=== PATIENT | male | born 1970 | race African-American/Black ===

== ENCOUNTER 2016-11-01 09:25 | Emergency (ER) | payer SELFPAY ==
[~2016-11-01] VITALS: Ht 175.3 cm; Wt 93.0 kg
[~2016-11-01 09:25] MED LIST: DEXAMETHASONE 4 MG TABLET PO ONE
[2016-11-01] MEDS ORDERED: ACETAMINOPHEN 500 MG TABLET PO ONE (10:15)
[2016-11-01 10:30] LABS: BASO % 0 % (0-3); EOS % 0 % (0-3); HEMATOCRIT 43.3 % (39.0-53.0); HEMOGLOBIN 14.1 g/dL (13.0-17.5); LYMPH % 5 % (24-48); MEAN CORPUSCULAR HEMOGLOBIN 29 pg (25-35); MEAN CORPUSCULAR HGB CONC 33 g/dL (31-37); MEAN CORPUSCULAR VOLUME 88 fL (79-100); MONO % 10 % (0-9); NEUT % 85 % (31-73); PLATELET COUNT 248 x10^3/uL (140-400); RED CELL DISTRIBUTION WIDTH 14.9 % (11.5-14.5); WHITE BLOOD COUNT 18.3 x10^3/uL (4.0-11.0)
[2016-11-01 10:31] LABS: LYMPH # 0.9 x10^3/uL (1.0-4.8)
--- NOTE | 2016-11-01 10:38 | ED.ADGEN ---
Past Medical History Past Medical History: High Cholesterol, Heart Disease, Hypertension, Other Additional Past Medical Histor: 'pre diabetes' Past Surgical History: Other Additional Past Surgical Histo: left leg vee Alcohol Use: Occasionally Drug Use: None Adult General Chief Complaint Chief Complaint: HEADACHE HPI HPI Patient is a 46 year old man, history of hypertension, "prediabetes", high cholesterol, CAD, who presents to the emergency department with multiple complaints, including a headache, lightheadedness over the past several days. Denies any actual syncope, states that it feels both like the room is spinning around him and as though he is going to pass out, denies any focal weakness numbness or tingling, any vision changes, states he does have some nasal congestion, and sore throat, denies any postnasal drip. Denies similar symptoms previously, denies any recent sick contacts or exposures. Some cough, is nonproductive. No recent travel or surgery, states he has been compliant with his medications. He states he's had headaches previously, and his blood pressure was high, but currently his blood pressure is 150/80 he states he has been compliant with his medications. He states he also been experiencing fevers and chills at home that he been subjective. This is all occurred over the past 2 days. No GI or symptoms. No injuries. Review of Systems Review of Systems Constitutional: Subjective fevers and chills. [] Eyes: Denies change in visual acuity. [] HENT: Some nasal congestion, sore throat. [] Respiratory: Denies shortness of breath, complaining of cough. Cardiovascular: Denies chest pain or edema. [] GI: Denies abdominal pain, nausea, vomiting, bloody stools or diarrhea. [] : Denies dysuria. [] Musculoskeletal: Denies back pain or joint pain. [] Integument: Denies rash. [] Neurologic: Frontal headache, lightheadedness, no weakness, numbness or tingling changes. [] Endocrine: Denies polyuria or polydipsia. [] Lymphatic: Denies swollen glands. [] Psychiatric: Denies depression or anxiety. [] Current Medications Current Medications Current Medications Medications (Trade) Dose Ordered Sig/Reinier Start Time Stop Time Status Last Admin Dose Admin Acetaminophen (Tylenol) 1,000 mg 1X ONCE 11/01/16 10:15 11/01/16 10:16 DC 11/01/16 10:23 1,000 MG Dexamethasone (Decadron) 4 mg ONCE ONCE 11/01/16 08:00 11/01/16 13:42 DC Dexamethasone Sodium Phosphate (Decadron) 4 mg 1X ONCE 11/01/16 14:00 11/01/16 14:01 DC 11/01/16 13:40 4 MG Penicillin G Benzathine (Bicillin L-A) 1,200,000 unit 1X ONCE 11/01/16 13:30 11/01/16 13:42 DC 11/01/16 13:41 1,200,000 UNIT Allergies Allergies Allergies Coded Allergies Type Severity Reaction Last Updated Verified No Known Drug Allergies 12/06/15 No Physical Exam Physical Exam Constitutional: Well developed, well nourished, no acute distress, non-toxic appearance. [] HENT: Normocephalic, atraumatic, bilateral external ears normal, oropharynx moist, mild postnasal drip noted, patient with turbinate swelling bilaterally, no oral exudates, external nose normal. [] No temporal tenderness, no mastoid tenderness, TMs are clear bilaterally. Eyes: PERRLA, EOMI, conjunctiva normal, no discharge. [] Neck: Normal range of motion, no tenderness, supple, no stridor. No nuchal rigidity, negative jolt accentuation test. [] Cardiovascular:Heart rate regular rhythm, no murmur, S1, S2, rubs or gallops. [] Lungs & Thorax: Bilateral breath sounds clear to auscultation , no wheezing, rhonchi, rales. No chest wall crepitus or tenderness. [] Abdomen: Bowel sounds normal, soft, no rebound, rigidity, no guarding, no tenderness, no masses, no pulsatile masses. [] Skin: Warm, dry, no erythema, no rash. [] Back: No tenderness, no CVA tenderness. [] Extremities: No tenderness, no cyanosis, no clubbing, ROM intact, no edema. [] Neurologic: Alert and oriented X 3, normal motor function, normal sensory function, no focal deficits noted. [] Psychologic: Affect normal, judgement normal, mood normal. [] Current Patient Data Vital Signs Vital Signs Date Time Temp Pulse Resp B/P Pulse Ox O2 Delivery O2 Flow Rate FiO2 11/01/16 13:44 62 16 148/85 96 Room Air 4/29/17 09:52 99.4 99.4 Lab Values Laboratory Tests Test 11/01/16 09:53 11/01/16 11:56 White Blood Count 18.3x10^3/uL (4.0-11.0) H Red Blood Count 4.90x10^6/uL (4.30-5.70) Hemoglobin 14.1g/dL (13.0-17.5) Hematocrit 43.3% (39.0-53.0) Mean Corpuscular Volume 88fL (79-100) Mean Corpuscular Hemoglobin 29pg (25-35) Mean Corpuscular Hemoglobin Concent 33g/dL (31-37) Red Cell Distribution Width 14.9% (11.5-14.5) H Platelet Count 248x10^3/uL (140-400) Neutrophils (%) (Auto) 85% (31-73) H Lymphocytes (%) (Auto) 5% (24-48) L Monocytes (%) (Auto) 10% (0-9) H Eosinophils (%) (Auto) 0% (0-3) Basophils (%) (Auto) 0% (0-3) Neutrophils # (Auto) 15.5x10^3uL (1.8-7.7) H Lymphocytes # (Auto) 0.9x10^3/uL (1.0-4.8) L Monocytes # (Auto) 1.8x10^3/uL (0.0-1.1) H Eosinophils # (Auto) 0.0x10^3/uL (0.0-0.7) Basophils # (Auto) 0.0x10^3/uL (0.0-0.2) Segmented Neutrophils % 62% (35-66) Band Neutrophils % 27% (0-9) H Lymphocytes % 6% (24-48) L Monocytes % 4% (0-10) Eosinophils % 1% (0-5) Platelet Estimate Adequate (ADEQUATE) Sodium Level 137mmol/L (136-145) Potassium Level 3.9mmol/L (3.5-5.1) Chloride Level 100mmol/L (98-107) Carbon Dioxide Level 28mmol/L (21-32) Anion Gap 9 (6-14) Blood Urea Nitrogen 14mg/dL (8-26) Creatinine 1.2mg/dL (0.7-1.3) Estimated GFR (Cockcroft-Gault) 78.9 BUN/Creatinine Ratio 12 (6-20) Glucose Level 122mg/dL (70-99) H Calcium Level 9.5mg/dL (8.5-10.1) Magnesium Level 2.1mg/dL (1.8-2.4) Total Bilirubin 0.4mg/dL (0.2-1.0) Aspartate Amino Transferase (AST) 24U/L (15-37) Alanine Aminotransferase (ALT) 21U/L (16-63) Alkaline Phosphatase 73U/L (46-116) Troponin I Quantitative < 0.017ng/mL (0.000-0.055) RA-Nsx-C-Type Natriuretic Peptide 27pg/mL (0-124) Total Protein 8.7g/dL (6.4-8.2) H Albumin 3.6g/dL (3.4-5.0) Albumin/Globulin Ratio 0.7 (1.0-1.7) L Urine Collection Type Void Urine Color Mary Urine Clarity Clear Urine pH 6.0 Urine Specific [place] >=1.030 Urine Protein 100mg/dL (NEG-TRACE) Urine Glucose (UA) Negativemg/dL (NEG) Urine Ketones (Stick) 15mg/dL (NEG) Urine Blood Negative (NEG) Urine Nitrite Negative (NEG) Urine Bilirubin Moderate (NEG) Urine Urobilinogen Dipstick 1.0mg/dL (0.2 mg/dL) Urine Leukocyte Esterase Small (NEG) Urine RBC 0/HPF (0-2) Urine WBC 5-10/HPF (0-4) Urine Squamous Epithelial Cells Many/LPF Urine Bacteria Few/HPF (0-FEW) Urine Opiates Screen Neg (NEG) Urine Methadone Screen Neg (NEG) Urine Barbiturates Neg (NEG) Urine Phencyclidine Screen Neg (NEG) Urine Amphetamine/Methamphetamine Neg (NEG) Urine Benzodiazepines Screen Neg (NEG) Urine Cocaine Screen Neg (NEG) Urine Cannabinoids Screen Neg (NEG) Urine Ethyl Alcohol Neg (NEG) Laboratory Tests 11/01/16 09:53 Laboratory Tests 11/01/16 09:53 EKG EKG ECG: An 27: Sinus rhythm, heart rate 68 bpm, upright axis, QTC of 398, MS 140, QRS of 86, T-wave inversions noted in lead 3, no ST elevations or depressions, abnormal ECG, does not meet STEMI criteria. As interpreted by me. Radiology/Procedures Radiology/Procedures [] [address] [address] IMAGING REPORT Signed PATIENT: DARIA DUNCAN ACCOUNT: [id number] : 1970 LOCATION: ER AGE: 46 SEX: M EXAM STATUS: REG ER ORD. PHYSICIAN: MATT ESPINOSA DO REASON: CH PROCEDURE: CT HEAD WO CONTRAST Clinical indications: Headache and dizziness. Technique: Noncontrast axial cross sectional scanning of the head was performed. RS Compliance Statement: One or more of the following individualized dose reduction techniques were utilized for this examination: 1. Automated exposure control 2. Adjustment of the mA and/or kV according to patient size 3. Use of iterative reconstruction technique Comparison: April 23, 2010. Findings: No acute intracranial hemorrhage or midline shift or mass-effect or hydrocephalus or extra-axial fluid collection is seen. No focal hypodense area or sulci effacement is seen to indicate an acute infarct or edema radiographically. No skull fracture or pneumocephalus is seen. No opacification of the mastoid sinuses or the paranasal sinuses is seen. The maxillary sinuses are not completely seen in this study. Impression: No acute intracranial abnormality is seen. DICTATED and SIGNED BY: ALISA MCPHERSON MD DATE: 11/01/16 1242 CC: VINNIE [employer]; MATT ESPINOSA DO ~ Impressions: [address] [address] IMAGING REPORT Signed PATIENT: DARIA DUNCAN ACCOUNT: [id number] : 1970 LOCATION: ER AGE: 46 SEX: M EXAM STATUS: PRE ER ORD. PHYSICIAN: MATT ESPINOSA DO REASON: CH/Lightheadness/cough PROCEDURE: CHEST PA & LATERAL 2 view CXR: Clinical indications: Lightheadedness. Headache for 3 days. Comparison: None available. Findings: No acute lung infiltrate or pleural effusion or pulmonary edema or lung mass or pneumothorax is seen. The heart size, pulmonary vasculature, mediastinum and both rah are unremarkable. The osseous structures appear intact. Impression: No acute radiographic abnormality is seen. DICTATED and SIGNED BY: ALISA MCPHERSON MD DATE: 11/01/16 1033 CC: [employer] CONSULTANT; MATT ESPINOSA DO ~ Course & Med Decision Making Course & Med Decision Making Pertinent Labs and Imaging studies reviewed. (See chart for details) Evaluated patient, patient's neurologic examination is non-concerning, however on reevaluation after receiving medication he still complained of headache, CT of the head was ordered at that time to rule out any occult concerning causes. Head CT was unremarkable. Patient states he is feeling better receiving IV fluids, Tylenol, in the ED, strep swab was positive, patient noted to have a leukocytosis of 18 with a bandemia and a left shift, no other concerning findings were identified, no other source for infection. Patient's examination is not consistent with meningitis, there is no rigidity, no neck stiffness or soreness, and negative jolt accentuation test. Patient afebrile emergency department, received Decadron, and IM penicillin after discussion, has tolerated penicillin without issue previously. Discussed use of supportive measures, importance of establishing a primary care provider, patient was follow -up instructions, concerning symptoms that should prompt return to the ED. Patient discharged home in stable condition with his family with plan as above. Dragon Disclaimer Dragon Disclaimer This electronic medical record was generated, in whole or in part, using a voice recognition dictation system. Departure Impression: Primary Impression: Strep pharyngitis Additional Impressions: Headache Body aches Disposition: HOME, SELF-CARE Condition: IMPROVED Scripts Ondansetron Hcl (Zofran)4 Mg Tablet1 Tab PO PRN Q6-8HRS #10 TAB Prov:MATT ESPINOSA DO 11/01/16 Problem Qualifiers MATT ESPINOSA DO Nov 01, 2016 10:38
--- NOTE | 2016-11-01 10:50 | EKG ---
[facility] [address] [place] [address] Test Date: 2016-11-01 Test Time: 10:27:51 Pat Name: DARIA DUNCAN Department: Room: Gender: M Apprentice Carpenter: : 1970 Requested By: MATT ESPINOSA Order Number: [id number] Reading MD: Saul Lee Measurements Intervals [place] Rate: 68 P: 52 [place]: 140 QRS: 42 QRSD: 86 T: 15 QT: 374 QTc: 398 Interpretive Statements SINUS RHYTHM Electronically Signed On 11-05-2016 9:48:15 CDT by Saul Lee
[2016-11-01 11:00] LABS: ALBUMIN 3.6 g/dL (3.4-5.0); ALBUMIN/GLOBULIN RATIO 0.7 (1.0-1.7); CALCIUM 9.5 mg/dL (8.5-10.1); CREATININE 1.2 mg/dL (0.7-1.3); GFR 78.9; TOTAL BILIRUBIN 0.4 mg/dL (0.2-1.0); TOTAL PROTEIN 8.7 g/dL (6.4-8.2)
[2016-11-01 11:01] LABS: MAGNESIUM 2.1 mg/dL (1.8-2.4); POTASSIUM 3.9 mmol/L (3.5-5.1)
[2016-11-01 12:13] LABS: BILIRUBIN,URINE MODERATE (NEG); GLUCOSE,URINE NEGATIVE (NEG); NITRITE,URINE NEGATIVE (NEG); PROTEIN,URINE 100 mg/dL (NEG-TRACE)
[2016-11-01 12:32] LABS: BARBITURATES NEG (NEG); BENZODIAZEPINES NEG (NEG); CANNABINOIDS NEG (NEG); COCAINE NEG (NEG); METHADONE NEG (NEG); OPIATES NEG (NEG); PHENCYCLIDINE NEG (NEG)
[2016-11-01 12:33] LABS: BACTERIA,URINE FEW /HPF (0-FEW); RBC,URINE 0 /HPF (0-2); SQUAMOUS EPITHELIAL CELL,UR MANY /LPF
[2016-11-01 12:36] LABS: % EOS 1 % (0-5); PLT ESTIMATE ADEQUATE (ADEQUATE)
--- NOTE | 2016-11-01 12:47 | RAD ---
Clinical indications: Headache and dizziness. Technique: Noncontrast axial cross sectional scanning of the head was performed. PQRS Compliance Statement: One or more of the following individualized dose reduction techniques were utilized for this examination: 1. Automated exposure control 2. Adjustment of the mA and/or kV according to patient size 3. Use of iterative reconstruction technique Comparison: April 23, 2010. Findings: No acute intracranial hemorrhage or midline shift or mass-effect or hydrocephalus or extra-axial fluid collection is seen. No focal hypodense area or sulci effacement is seen to indicate an acute infarct or edema radiographically. No skull fracture or pneumocephalus is seen. No opacification of the mastoid sinuses or the paranasal sinuses is seen. The maxillary sinuses are not completely seen in this study. Impression: No acute intracranial abnormality is seen.
[2016-11-01] MEDS ORDERED: PENICILLIN G BENZATHINE LA 1,200,000 UNIT/2 ML DISP.SYRIN. IM ONE (13:30)
[2016-11-01] MEDS ORDERED: DEXAMETHASONE SOD PHOS 4 MG/ML VIAL ONE (13:38)
[2016-11-01] MEDS ORDERED: ONDA4TAB7 PO (13:39)
[2016-11-01 13:44] VITALS: BP 148/85
[2016-11-01] MEDS ORDERED: DEXAMETHASONE SOD PHOS 4 MG/ML VIAL PO ONE (14:00)
[2016-11-02 07:48] LABS: NEGATIVE OBC STREP NEG; POSITIVE OBC STREP POS
== END 2016-11-01 13:56 | disposition home or self-care (01) ==
LOC: ER 09:25
DX: R51 Headache (principal); J02.0 Streptococcal pharyngitis; M79.1 Myalgia; E78.00 Pure hypercholesterolemia, unspecified; I10 Essential (primary) hypertension
CPT/HCPCS: 36415; 70450; 71020; 80053; 80305; 81001; 83735; 83880; 84484; 85007; 85027; 87086; 87880; 93005; 96372; 99285; J0561; J1100; G0481

== ENCOUNTER 2017-02-17 23:42 | Emergency (ER) | payer SELFPAY ==
[~2017-02-17] VITALS: Ht 170.2 cm; Wt 89.8 kg
[~2017-02-17 23:42] MED LIST changes: -DEXAMETHASONE 4 MG TABLET PO ONE; +ONDA4TAB7 PO
[2017-02-18] VITALS: BP 142/69
[2017-02-18] MEDS ORDERED: CYCL10TA2 PO (00:10)
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
[2017-02-18] MEDS ORDERED: IBUPROFEN 800 MG TABLET. PO ONE (00:30)
== END 2017-02-18 00:35 | disposition home or self-care (01) ==
LOC: ER 23:42
DX: M25.551 Pain in right hip (principal); M54.5 Low back pain; E78.00 Pure hypercholesterolemia, unspecified; I11.9 Hypertensive heart disease without heart failure
CPT/HCPCS: 99283

== ENCOUNTER 2019-05-19 12:10 | Emergency (ER) | payer MEDICARE, OTHER ==
[~2019-05-19] VITALS: Ht 170.2 cm; Wt 89.8 kg
[~2019-05-19 12:10] MED LIST changes: +CYCL10TA2 PO
[2019-05-19] MEDS ORDERED: NITROGLYCERIN SUBLINGUAL 0.4 MG BOTTLE OF 25. SL STA (12:38)
[2019-05-19] MEDS ORDERED: ASPIRIN CHEWABLE 81 MG TABLET. PO ONE (12:45)
--- NOTE | 2019-05-19 12:45 | PHYS DOC ---
Past Medical History Past Medical History: High Cholesterol, Heart Disease, Hypertension, Other Additional Past Medical Histor: 'pre diabetes' Past Surgical History: Other Additional Past Surgical Histo: left leg vee Alcohol Use: Occasionally Drug Use: None Adult General Chief Complaint Chief Complaint: chest pain HPI HPI Patient is a 48 year old male who presents with complaining of chest pain. Patient complaining of intermittent episodes of substernal sharp pain for the last 5 days for several hours without radiation of the pain, shortness of breath, nausea and vomiting, dizziness, palpitation. Patient states the pain does not get worse with position and improves with laying on his right side. Patient states the pain lasts for several hours and rated his pain 10 over 10 . Patient rated his pain 10 over 10 at arrival to ER and denies taking pain medication at home. Patient states he was seen by cardiology and had cardiac catheterization 2 or 3 years ago [facility] related to the same pain and was started on blood pressure and heart medication but doesn't know the name of his medication. Patient states he did not take his medication for the last 10 days because he ran out of his medication. Review of Systems Review of Systems Constitutional: Denies fever or chills [] Eyes: Denies change in visual acuity, redness, or eye pain [] HENT: Denies nasal congestion or sore throat [] Respiratory: Denies cough or shortness of breath [] Cardiovascular: No additional information not addressed in HPI [] GI: Denies abdominal pain, nausea, vomiting, bloody stools or diarrhea [] : Denies dysuria or hematuria [] Musculoskeletal: Denies back pain or joint pain [] Integument: Denies rash or skin lesions [] Neurologic: Denies headache, focal weakness or sensory changes [] Endocrine: Denies polyuria or polydipsia [] All other systems were reviewed and found to be within normal limits, except as documented in this note. Current Medications Current Medications Current Medications Medications (Trade) Dose Ordered Sig/Reinier Start Time Stop Time Status Last Admin Dose Admin Aspirin (Children'S Aspirin) 324 mg 1X ONCE 05/19/19 12:45 05/19/19 12:46 DC 05/19/19 13:13 324 MG Nitroglycerin (Nitrostat) 0.4 mg 1X STAT 05/19/19 12:38 05/19/19 12:41 DC 05/19/19 13:14 0.4 MG Allergies Allergies Allergies Coded Allergies Type Severity Reaction Last Updated Verified No Known Drug Allergies 12/06/15 No Physical Exam Physical Exam Constitutional: Well developed, well nourished, mild distress, non-toxic appearance. [] HENT: Normocephalic, atraumatic, bilateral external ears normal, oropharynx moist, no oral exudates, nose normal. [] Eyes: PERRLA, EOMI, conjunctiva normal, no discharge. [] Neck: Normal range of motion, no tenderness, supple, no stridor. [] Cardiovascular:Heart rate regular rhythm, no murmur [] Lungs & Thorax: Bilateral breath sounds clear to auscultation [] Abdomen: Bowel sounds normal, soft, no tenderness, no masses, no pulsatile masses. [] Skin: Warm, dry, no erythema, no rash. [] Back: No tenderness, no CVA tenderness. [] Extremities: No tenderness, no cyanosis, no clubbing, ROM intact, no edema. [] Neurologic: Alert and oriented X 3, normal motor function, normal sensory function, no focal deficits noted. [] Psychologic: Affect anxious, judgement normal, mood normal. [] Current Patient Data Vital Signs Vital Signs Date Time Temp Pulse Resp B/P (MAP) Pulse Ox O2 Delivery O2 Flow Rate FiO2 05/19/19 14:30 70 20 118/73 (88) 95 Room Air 05/19/19 12:29 98.6 98.6 Lab Values Laboratory Tests Test 05/19/19 13:00 05/19/19 13:05 White Blood Count 6.0 x10^3/uL (4.0-11.0) Red Blood Count 4.74 x10^6/uL (4.30-5.70) Hemoglobin 13.4 g/dL (13.0-17.5) Hematocrit 40.4 % (39.0-53.0) Mean Corpuscular Volume 85 fL (79-100) Mean Corpuscular Hemoglobin 28 pg (25-35) Mean Corpuscular Hemoglobin Concent 33 g/dL (31-37) Red Cell Distribution Width 14.3 % (11.5-14.5) Platelet Count 273 x10^3/uL (140-400) Neutrophils (%) (Auto) 58 % (31-73) Lymphocytes (%) (Auto) 30 % (24-48) Monocytes (%) (Auto) 8 % (0-9) Eosinophils (%) (Auto) 3 % (0-3) Basophils (%) (Auto) 1 % (0-3) Neutrophils # (Auto) 3.4 x10^3/uL (1.8-7.7) Lymphocytes # (Auto) 1.8 x10^3/uL (1.0-4.8) Monocytes # (Auto) 0.4 x10^3/uL (0.0-1.1) Eosinophils # (Auto) 0.2 x10^3/uL (0.0-0.7) Basophils # (Auto) 0.1 x10^3/uL (0.0-0.2) Prothrombin Time 12.6 SEC (11.7-14.0) Prothrombin Time INR 1.0 (0.8-1.1) Sodium Level 142 mmol/L (136-145) Potassium Level 4.3 mmol/L (3.5-5.1) Chloride Level 105 mmol/L (98-107) Carbon Dioxide Level 26 mmol/L (21-32) Anion Gap 11 (6-14) Blood Urea Nitrogen 14 mg/dL (8-26) Creatinine 0.9 mg/dL (0.7-1.3) Estimated GFR (Cockcroft-Gault) 109.0 BUN/Creatinine Ratio 16 (6-20) Glucose Level 96 mg/dL (70-99) Calcium Level 8.7 mg/dL (8.5-10.1) Magnesium Level 1.8 mg/dL (1.8-2.4) Total Bilirubin 0.2 mg/dL (0.2-1.0) Aspartate Amino Transferase (AST) 15 U/L (15-37) Alanine Aminotransferase (ALT) 21 U/L (16-63) Alkaline Phosphatase 62 U/L (46-116) Creatine Kinase 125 U/L (39-308) Troponin I Quantitative < 0.017 ng/mL (0.000-0.055) QV-Xet-Y-Type Natriuretic Peptide 147 pg/mL (0-124) H Total Protein 7.5 g/dL (6.4-8.2) Albumin 3.7 g/dL (3.4-5.0) Albumin/Globulin Ratio 1.0 (1.0-1.7) Lipase 55 U/L (73-393) L Urine Opiates Screen Neg (NEG) Urine Methadone Screen Neg (NEG) Urine Barbiturates Neg (NEG) Urine Phencyclidine Screen Neg (NEG) Urine Amphetamine/Methamphetamine Neg (NEG) Urine Benzodiazepines Screen Neg (NEG) Urine Cocaine Screen Neg (NEG) Urine Cannabinoids Screen Neg (NEG) Urine Ethyl Alcohol Pos (NEG) Laboratory Tests 05/19/19 13:00 Laboratory Tests 05/19/19 13:00 EKG EKG EKG interpreted by me. EKG at 1220 showed normal sinus rhythm with rate of 63 with PVCs, left atrial abnormalities, no acute ST and T-wave elevation. Radiology/Procedures Radiology/Procedures [facility] [address] [place], [place] [id number] IMAGING REPORT Signed PATIENT: DARIA DUNCAN ACCOUNT: [id number] : 1970 LOCATION: ER AGE: 48 SEX: M EXAM STATUS: REG ER ORD. PHYSICIAN: SIERRA JACKSON MD REASON: chest pain PROCEDURE: CHEST PA & LATERAL CHEST PA LATERAL History: Chest pain Comparison: November 01, 2016 Findings: 2 views of the chest are submitted. There is no infiltrate, pneumothorax, or effusion. Pericardial cardiac silhouette is within normal limits in size. Impression: 1. There is no radiographic evidence of acute cardiopulmonary disease. Electronically signed by: Iliana Erickson MD (05/19/2019 1:16 PM) [id number] DICTATED and SIGNED BY: ILIANA ERICKSON MD DATE: 05/19/19 1316 Course & Med Decision Making Course & Med Decision Making Pertinent Labs and Imaging studies reviewed. (See chart for details) Evaluation of patient in ER showed 48-year-old male patient with heart school for with complaining of episodes of chest pain for the last 5 days. Patient had unremarkable physical exam and labs except for a positive urine for alcohol. Patient was advised to take his blood pressure medication that he does not know the name and quit smoking cigarettes and drinking alcohol. I've spoken with the patient and/or caregivers. I've explained the patient's condition, diagnosis and treatment plan based on information available to me at this time. I've answered the patient's and/or caregivers questions and addressed any concerns. The patient and/or caregivers have a good understanding the patient's diagnosis, condition and treatment plan as can be expected at this point. Vital signs have been stabilized. The patient's condition is stable for discharge from the emergency department. The patient will pursue further outpatient evaluation with her primary care dayana contreras or other designated consulting physician as outlined in the discharge instructions. Patient and/or caregivers are agreeable to this plan of care and follow-up instructions have been explained in detail. The patient and/or caregivers have received these instructions in written format and expressed understanding of these discharge instructions. The patient and her caregivers are aware that if any significant change in condition or worsening of symptoms should prompt him to immediately return to this of the closest emergency department. If an emergent department is not readily available I would encourage him to call 911. Deven Disclaimer [employer]tr[employer] Disclaimer This electronic medical record was generated, in whole or in part, using a voice recognition dictation system. Departure Departure Impression: Primary Impression: Non-cardiac chest pain Additional Impression: Accelerated hypertension Disposition: HOME, SELF-CARE (@1345) Condition: STABLE Referrals: NO PCP (PCP) Patient Instructions: Chest Wall Pain Additional Instructions: Follow-up with your primary care physician in 2 days for refill of blood pressure medication Return to ER if not getting better Scripts Naproxen (NAPROSYN) 500 Mg Tablet 1 TAB PO BID for pain, #20 TAB Prov: SIERRA JACKSON MD 05/19/19 Cyclobenzaprine Hcl (CYCLOBENZAPRINE HCL) 10 Mg Tablet 1 TAB PO TID, #21 TAB Prov: SIERRA JACKSON MD 05/19/19 The HEART Score for CP Pts HEART Score for Chest Pain: HEART Score for Chest Pain Response (Comments) Value History Slighlty/Non-Suspicious 0 ECG Nonspecific Repolarizatio 1 Age >45 - < 65 1 Risk Factors >3 Risk Factors or Hx CAD 2 Troponin < Normal Limit 0 Total 4 Risk Factors: Risk Factors: DM, Current or recent (<one month) smoker, HTN, HLP, family history of CAD, obesity. Risk Scores: Score 0 - 3: 2.5% MACE over next 6 weeks - Discharge Home Score 4 - 6: 20.3% MACE over next 6 weeks - Admit for Clinical Observation Score 7 - 10: 72.7% MACE over next 6 weeks - Early Invasive Strategies Problem Qualifiers SIERRA JACKSON MD May 19, 2019 12:45
[2019-05-19 13:10] LABS: BASO # 0.1 x10^3/uL (0.0-0.2); BASO % 1 % (0-3); EOS # 0.2 x10^3/uL (0.0-0.7); EOS % 3 % (0-3); HEMATOCRIT 40.4 % (39.0-53.0); HEMOGLOBIN 13.4 g/dL (13.0-17.5); LYMPH # 1.8 x10^3/uL (1.0-4.8); LYMPH % 30 % (24-48); MEAN CORPUSCULAR HEMOGLOBIN 28 pg (25-35); MEAN CORPUSCULAR HGB CONC 33 g/dL (31-37); MEAN CORPUSCULAR VOLUME 85 fL (79-100); MONO # 0.4 x10^3/uL (0.0-1.1); MONO % 8 % (0-9); NEUT # 3.4 x10^3/uL (1.8-7.7); NEUT % 58 % (31-73); PLATELET COUNT 273 x10^3/uL (140-400); RED BLOOD COUNT 4.74 x10^6/uL (4.30-5.70); RED CELL DISTRIBUTION WIDTH 14.3 % (11.5-14.5)
--- NOTE | 2019-05-19 13:19 | RAD ---
CHEST PA LATERAL History: Chest pain Comparison: November 01, 2016 Findings: 2 views of the chest are submitted. There is no infiltrate, pneumothorax, or effusion. Pericardial cardiac silhouette is within normal limits in size. Impression: 1. There is no radiographic evidence of acute cardiopulmonary disease. Electronically signed by: Alejo Erickson MD (05/19/2019 1:16 PM) [id number]
[2019-05-19 13:20] LABS: CALCIUM 8.7 mg/dL (8.5-10.1); CREATININE 0.9 mg/dL (0.7-1.3); POTASSIUM 4.3 mmol/L (3.5-5.1); PROTHROMBIN TIME PATIENT 12.6 SEC (11.7-14.0)
[2019-05-19 13:22] LABS: BARBITURATES NEG (NEG); BENZODIAZEPINES NEG (NEG); CANNABINOIDS NEG (NEG); COCAINE NEG (NEG); METHADONE NEG (NEG); OPIATES NEG (NEG); PHENCYCLIDINE NEG (NEG)
[2019-05-19 13:24] LABS: AMPHETAMINE/METHAMPHETAMINE NEG (NEG)
[2019-05-19 13:27] LABS: ALBUMIN 3.7 g/dL (3.4-5.0); MAGNESIUM 1.8 mg/dL (1.8-2.4); TOTAL BILIRUBIN 0.2 mg/dL (0.2-1.0); TOTAL PROTEIN 7.5 g/dL (6.4-8.2)
--- NOTE | 2019-05-19 13:29 | EKG ---
[facility] [address] [place] [address] Test Date: 2019-05-19 Test Time: 12:20:29 Pat Name: DARIA DUNCAN Department: Room: Gender: M [employer]: : 1970 Requested By: SIERRA JACKSON Order Number: [id number] Reading MD: Measurements Intervals Deposit Rate: 63 P: 58 SC: 132 QRS: 45 QRSD: 90 T: 37 QT: 376 QTc: 388 Interpretive Statements SINUS RHYTHM VENTRICULAR PREMATURE COMPLEX(ES) LEFT ATRIAL ABNORMALITY ABNORMAL ECG RI6.01 No previous ECG available for comparison
[2019-05-19] MEDS ORDERED: CYCL10TA2 PO (13:52)
[2019-05-19] MEDS ORDERED: NAPR-683 PO (13:52)
[2019-05-19 14:30] VITALS: BP 118/73
== END 2019-05-19 14:33 | disposition home or self-care (01) ==
LOC: ER 12:10
DX: R07.2 Precordial pain (principal); E78.00 Pure hypercholesterolemia, unspecified; I11.9 Hypertensive heart disease without heart failure
CPT/HCPCS: 36415; 71046; 80053; 80307; 82550; 83690; 83735; 83880; 84484; 85025; 85610; 93005; 99285